=== PATIENT | male | born 1985 | race African-American/Black ===

== ENCOUNTER 2022-08-17 17:32 | Emergency (ER) | payer MEDICAID ==
[~2022-08-17] VITALS: Ht 180.3 cm; Wt 68.1 kg
[2022-08-17 17:45] VITALS: BP 115/79
== END 2022-08-17 20:17 | disposition home or self-care (01) ==
LOC: ER 17:36
DX: S02.609A Fracture of mandible, unspecified, initial encounter for closed fracture (principal); Y04.2XXA Assault by strike against or bumped into by another person, initial encounter; Y93.89 Activity, other specified; Y92.89 Other specified places as the place of occurrence of the external cause; Y99.8 Other external cause status
CPT/HCPCS: 70486